=== PATIENT | male | born 1945 | race Caucasian/White ===

== ENCOUNTER 2017-09-07 02:22 | Emergency (ER) | payer OTHER, MEDICARE ==
[~2017-09-07] VITALS: Ht 182.9 cm; Wt 79.4 kg
[2017-09-07] MEDS ORDERED: LOSARTAN POTASS50 M1 PO (02:34)
[2017-09-07] MEDS ORDERED: ATENOLOL25 M1 PO (02:35)
--- NOTE | 2017-09-07 02:52 | ED GENERAL ADULT ---
History of Present Illness General Chief Complaint: General Adult Stated Complaint: HIGH BP, "170/72" Source: patient, old records Exam Limitations: no limitations Vital Signs & Intake/Output Vital Signs & Intake/Output Vital Signs Date Time Temp Pulse Resp B/P B/P Pulse O2 O2 Flow FiO2 Mean Ox Delivery Rate 09/07 0244 186/94 09/07 0228 97.9 63 20 191/100 96 Room Air Allergies Coded Allergies: MDX - Bee Venom (Bee Venom) (UNKNOWN 01/12/13) Reconcile Medications Atenolol 25 MG TABLET 1 TAB PO DAILY HIGH BLOOD PRESSURE (Reported) Losartan Potassium 50 MG TABLET 1 TAB PO DAILY HIGH BLOOD PRESSURE (Reported) Triage Note: PT HERE WITH REPORTS OF INCREASED BP. PT REPORTS LAST NIGHT WHEN HE WENT TO BED THAT HE FELT "MY ARTERY IN MY NECK WAS BEATING FAST, SO I TOOK MY BP AND IT READ 170/75. I USUALLY RUN ABOUT 118-127/50-60'S. MY PULSE RATE IS USUALLY INN THE 50'S." PT DENIES SOB OR CP. Triage Nurses Notes Reviewed? yes HPI: Patient states he woke up to go to the bathroom and he felt like his heart was racing fast. Patient states he felt that in his neck so chest discomfort. The wound faster than it normally does. Patient states that he took his blood pressure and it was elevated for him. Patient became concerned and came to the emergency department for evaluation. Patient denies any chest pain or palpitations. There is no headache. There is no blurry vision. There is no nausea or vomiting. Patient states that he did not feel any symptoms in his chest and just felt like his carotid artery was beating fast. Patient states that he has known stenosis and that part of artery and that made him concerned and eventually made him check his blood pressure. Past History Travel History Traveled to [place] past 21 day No Medical History Any Pertinent Medical History? see below for history Cardiovascular: hypertension Surgical History Surgical History: non-contributory Psychosocial History What is your primary language [place] Tobacco Use: Never used ETOH Use: occasional use Illicit Drug Use: denies illicit drug use Family History Hx Contributory? No Review of Systems Review of Systems Constitutional: Reports: no symptoms. EENTM: Reports: no symptoms. Respiratory: Reports: no symptoms. Cardiovascular: Reports: no symptoms. GI: Reports: no symptoms. Genitourinary: Reports: no symptoms. Musculoskeletal: Reports: no symptoms. Skin: Reports: no symptoms. Neurological/Psychological: Reports: no symptoms. Hematologic/Endocrine: Reports: no symptoms. Immunologic/Allergic: Reports: no symptoms. All Other Systems: Reviewed and Negative Physical Exam Physical Exam General Appearance: well developed/nourished, alert, awake, anxious, mild distress Head: atraumatic, normal appearance Eyes: Bilateral: PERRL, EOMI. Ears, Nose, Throat: normal pharynx, normal ENT inspection, hearing grossly normal Neck: normal inspection, supple, full range of motion Respiratory: normal breath sounds, chest non-tender, no respiratory distress, lungs clear Cardiovascular: regular rate/rhythm, normal peripheral pulses Gastrointestinal: normal bowel sounds, soft, non-tender, no organomegaly Back: normal inspection, normal range of motion Extremities: normal inspection, normal capillary refill, normal range of motion, no edema Neurologic/Psych: no motor/sensory deficits, awake, alert, oriented x 3, normal gait, normal mood/affect Skin: intact, normal color, warm/dry Lymphatic: no anterior cervical al Core Measures ACS in differential dx? No CVA/TIA Diagnosis: No Sepsis Present: No Sepsis Focused Exam Completed? No Progress Differential Diagnoses I considered the following diagnoses in my evaluation of the patient: [HTN] Plan of Care: Orders Procedure Date/time Status URINALYSIS 09/08 247 Complete TROPONIN LEVEL 09/08 247 Complete COMPREHENSIVE METABOLIC PANEL 09/08 247 Complete CBC WITHOUT DIFFERENTIAL 09/08 247 Complete EKG 09/08 247 Active Laboratory Tests 09/07/17 0310: Anion Gap 8, Estimated GFR > 60, BUN/Creatinine Ratio 23.8, Glucose 89, Calcium 9.5, Total Bilirubin 0.5, AST 36, ALT 37, Alkaline Phosphatase 49, Troponin I < 0.01, Total Protein 6.9, Albumin 4.1, Globulin 2.8, Albumin/Globulin Ratio 1.5, CBC w Diff NO MAN DIFF REQ, RBC 4.39 L, MCV 90.8, MCH 30.9, MCHC 34.0, RDW 12.8 , MPV 8.0, Gran % 42.4, Lymphocytes % 44.4, Monocytes % 10.9 H, Eosinophils % 1.9, Basophils % 0.4, Absolute Granulocytes 1.6, Absolute Lymphocytes 1.6, Absolute Monocytes 0.4, Absolute Eosinophils 0.1, Absolute Basophils 0 05/27/18 0252: Urine Color YEL, Urine Clarity CLEAR, Urine pH 6.0, Ur Specific [place] 1.020, Urine Protein NEG, Urine Ketones NEG, Urine Nitrite NEG, Urine Bilirubin NEG, Urine Urobilinogen 0.2, Ur Leukocyte Esterase NEG, Ur Microscopic EXAM NOT REQUIRED, Urine Hemoglobin NEG, Urine Glucose NEG Initial ED EKG: NSR, RBBB, nonspecific ST T wave chg Prior EKG: unchanged Departure Departure Disposition: HOME OR SELF CARE Condition: Stable Clinical Impression Primary Impression: Hypertension Referrals: Blake SEQUEIRA,Jerald Daniels (PCP/Family) Jo Ann SEQUEIRA,Timo Dhaliwal Additional Instructions: Check her blood pressure twice a day and record the numbers. Call Dr. Cherry on Friday. Return if symptoms worsen or for any concerns. Departure Forms: Customer Survey General Discharge Information Critical Care Note Critical Care Note Critical Care Time: non-applicable
[2017-09-07 03:23] LABS: ABSOLUTE BASOPHIL COUNT 0 /CUMM (0.0-0.2); ABSOLUTE EOSINOPHIL COUNT 0.1 /CUMM (0.0-0.7); ABSOLUTE GRANULOCYTE CT 1.6 /CUMM (1.4-6.5); ABSOLUTE LYMPH COUNT 1.6 /CUMM (1.2-3.4); ABSOLUTE MONOCYTE COUNT 0.4 /CUMM (0.10-0.60); BASOPHIL % 0.4 % (0.0-2.0); EOSINOPHIL % 1.9 % (0-5); GRANULOCYTE % 42.4 % (42.2-75.2); HEMATOCRIT 39.8 % (42-52); MEAN CORPUSCULAR HGB 30.9 PG (27.0-31.0); MEAN CORPUSCULAR VOLUME 90.8 FL (80.0-94.0); PLATELET COUNT 156 /CUMM (130-400); RBC DISTRIBUTION WIDTH 12.8 % (11.5-14.5); RED BLOOD CELL CT 4.39 /CUMM (4.70-6.10); WHITE BLOOD CELL COUNT 3.7 /CUMM (4.8-10.8)
[2017-09-07 04:05] VITALS: BP 168/84
== END 2017-09-07 04:10 ==
LOC: ERH 02:22
PROVIDERS: Emergency Medicine
DX: I10 Essential (primary) hypertension (principal)
CPT/HCPCS: 81003; 93005; 93010